=== PATIENT | male | born 1950 | race African-American/Black ===

== ENCOUNTER 2025-05-07 17:21 | Inpatient (IN) | payer MEDICAID ==
[~2025-05-07] VITALS: Ht 180.3 cm; Wt 83.9 kg
[2025-05-07 17:24] VITALS: O2SAT 100
[2025-05-07 17:59] LABS: HEMATOCRIT. 36.6 % (42.0-52.0); HEMOGLOBIN. 12.7 g/dL (14.0-18.0); MEAN PLATELET VOLUME 7.3 fl (7.4-10.4); PLATELET 120 x1000/uL (130-400); RED BLOOD CELL COUNT 4.05 mill/uL (4.7-6.1); RED CELL DISTRIBUTION WIDTH 13.7 % (11.6-14.6)
[2025-05-07] MEDS: MORPHINE SULFATE 4 MG/ML INJ (FOR IV/IM USE) IV ONE (18:08)
[2025-05-07] MEDS: ACETAMINOPHEN 325MG TABLET PO ONE (18:08)
[2025-05-07] MEDS: SODIUM CHLORIDE 0.9% (SEPSIS BOLUS) IV ONE (18:09)
[2025-05-07 18:18] LABS: LYMPHOCYTES % MANUAL 5.0 % (20.0-50.0); MONOCYTES % MANUAL 3.0 % (2.0-8.0); NEUTROPHILS % MANUAL 92.0 % (45.0-75.0); UREA NITROGEN BLOOD 86 mg/dL (9-23)
[2025-05-07 18:19] LABS: ASPARTATE AMINOTRANSFERASE 44 IU/L (<34); PLATELET ESTIMATE NORMAL
[2025-05-07 18:20] LABS: BILIRUBIN DIRECT 0.4 mg/dL (<=3.0); BILIRUBIN TOTAL 1.3 mg/dL (0.1-1.0); PROTEIN TOTAL 6.7 g/dL (6.0-8.3)
[2025-05-07 18:22] LABS: CREATININE 10.8 mg/dL (0.6-1.3)
[2025-05-07] MEDS: CEFTRIAXONE 1GM/50ML 50 ML IV ONE (18:26)
[2025-05-07 20:46] LABS: CLARITY URINE CLEAR (CLEAR); COLOR URINE YELLOW (YELLOW); GLUCOSE URINE NEGATIVE (NEGATIVE); KETONES URINE NEGATIVE (NEGATIVE); LEUKOCYTE ESTERASE URINE TRACE (NEGATIVE); NITRITE URINE NEGATIVE (NEGATIVE); OCCULT BLOOD URINE 3+ (NEGATIVE); PH URINE 5.5 (4.5-8.0); PROTEIN URINE 1+ (NEGATIVE); SPECIFIC GRAVITY URINE 1.010 (1.005-1.030); UROBILINOGEN URINE 0.2 E.U./dL (0.2-1.0)
[2025-05-07 21:08] LABS: INR 1.1
[2025-05-07 21:27] LABS: BACTERIA URINE TRACE; SQUAMOUS EPITHELIAL CELL URINE FEW /lpf (RARE/1+)
[2025-05-07 22:00] VITALS: BP 99/56; PULSE 133; RESP 18; TEMP 36.3; O2SAT 95
[2025-05-07 22:19] VITALS: BP 99/56; PULSE 133; RESP 18; TEMP 36.3068
[2025-05-07] MEDS: SODIUM CHLORIDE 0.9% 1,000 ML IV SCH (22:35)
[2025-05-08] VITALS: BP 104/63; PULSE 121; RESP 18; TEMP 36.5; O2SAT 99
[2025-05-08 01:20] LABS: HEMATOCRIT. 35.7 % (42.0-52.0); HEMOGLOBIN. 12.1 g/dL (14.0-18.0); MEAN PLATELET VOLUME 7.3 fl (7.4-10.4); PLATELET 123 x1000/uL (130-400); RED BLOOD CELL COUNT 3.90 mill/uL (4.7-6.1); RED CELL DISTRIBUTION WIDTH 13.7 % (11.6-14.6)
[2025-05-08] MEDS ORDERED: METO25TA6 PO (01:38)
[2025-05-08 01:48] LABS: UREA NITROGEN BLOOD 62.0 mg/dL (9-23)
[2025-05-08 01:53] LABS: CREATININE 7.0 mg/dL (0.6-1.3)
[2025-05-08 04:00] VITALS: BP_SYST 125; BP_DIAS 75; BP_DIAS 76; PULSE 110; RESP 18; TEMP 36.5; O2SAT 97
[2025-05-08 04:27] LABS: LYMPHOCYTES % MANUAL 3.0 % (20.0-50.0); MONOCYTES % MANUAL 5.0 % (2.0-8.0); NEUTROPHILS % MANUAL 92.0 % (45.0-75.0); PLATELET ESTIMATE NORMAL
[2025-05-08 08:00] VITALS: BP 132/79; PULSE 109; RESP 18; TEMP 36.4; O2SAT 99
[2025-05-08] MEDS ORDERED: ONDANSETRON HCL 4MG/2ML INJ IV PRN (08:00)
[2025-05-08] MEDS ORDERED: ACETAMINOPHEN 325MG TABLET PO PRN (08:00)
[2025-05-08 12:00] VITALS: BP 147/80; PULSE 109; RESP 20; TEMP 36.4; O2SAT 97
[2025-05-08] MEDS: TAMSULOSIN HCL 0.4MG SR CAPSULE PO SCH (13:44)
[2025-05-08 16:00] VITALS: BP 143/77; PULSE 119; RESP 18; TEMP 36.4; O2SAT 98
[2025-05-08] MEDS: CEFTRIAXONE 1GM/50ML 50 ML IV SCH (18:01)
[2025-05-08 20:00] VITALS: BP 125/77; PULSE 116; RESP 18; TEMP 36.9; O2SAT 97
[2025-05-09] VITALS: BP 149/87; PULSE 113; RESP 18; TEMP 38.3; O2SAT 97
[2025-05-09 04:00] VITALS: BP 152/86; PULSE 110; RESP 18; TEMP 36.5; O2SAT 100
[2025-05-09 08:00] VITALS: BP 146/86; PULSE 103; RESP 20; TEMP 36.3; O2SAT 97
[2025-05-09 11:44] LABS: HEMATOCRIT. 38.1 % (42.0-52.0); HEMOGLOBIN. 13.0 g/dL (14.0-18.0); MEAN PLATELET VOLUME 7.8 fl (7.4-10.4); PLATELET 127 x1000/uL (130-400); RED BLOOD CELL COUNT 4.17 mill/uL (4.7-6.1); RED CELL DISTRIBUTION WIDTH 14.1 % (11.6-14.6)
[2025-05-09 12:00] VITALS: BP 145/89; PULSE 94; RESP 18; TEMP 36.5; O2SAT 94
[2025-05-09 12:02] LABS: CREATININE 1.0 mg/dL (0.6-1.3); UREA NITROGEN BLOOD 15 mg/dL (9-23)
[2025-05-09 16:00] VITALS: BP 127/74; PULSE 113; RESP 19; TEMP 36.3; O2SAT 99
[2025-05-09 20:00] VITALS: BP 133/86; PULSE 100; RESP 17; TEMP 36.7; O2SAT 100
[2025-05-10] VITALS: BP 139/86; PULSE 119; RESP 18; TEMP 37; O2SAT 99
[2025-05-10 04:00] VITALS: BP 121/73; PULSE 107; RESP 17; TEMP 36.6; O2SAT 98
[2025-05-10 07:00] LABS: INFLUENZA TYPE A Presumptive Negative (Pres. Neg.)
[2025-05-10 07:01] LABS: INFLUENZA TYPE B Presumptive Negative (Pres. Neg.)
[2025-05-10 07:03] LABS: RESPIRATORY SYNCYTIAL VIRUS Not Detected (Not Detectd)
[2025-05-10 08:00] VITALS: BP 122/77; PULSE 99; RESP 18; TEMP 36.3; O2SAT 98
[2025-05-10 12:00] VITALS: BP 146/86; PULSE 104; RESP 18; TEMP 36.3; O2SAT 98
[2025-05-10] MEDS ORDERED: NALOXONE HCL 0.4MG/ML VIAL IV PRN (15:30)
[2025-05-10] MEDS ORDERED: HYDROCODONE/ACETAMINOPHEN 5/325MG TABLET PO PRN (15:30)
[2025-05-10 16:07] LABS: LYMPHOCYTES % MANUAL 7.0 % (20.0-50.0); MONOCYTES % MANUAL 5.0 % (2.0-8.0); NEUTROPHILS % MANUAL 88.0 % (45.0-75.0); PLATELET ESTIMATE DECREASED
== END 2025-05-10 21:29 | disposition left against medical advice (07) | DRG 871 ==
LOC: ER 17:21 → 5WST 18:46 → EDBEDREQ 18:52 → EDBEDREQTM 18:52 → ENRESERV 19:53
PROVIDERS: ADMIT Internal Medicine; ATTEND Internal Medicine
DX: A41.9 Sepsis, unspecified organism (principal); U07.1 COVID-19; D61.818 Other pancytopenia; N13.6 Pyonephrosis; N17.9 Acute kidney failure, unspecified; B96.89 Other specified bacterial agents as the cause of diseases classified elsewhere; D64.9 Anemia, unspecified; I12.9 Hypertensive chronic kidney disease with stage 1 through stage 4 chronic kidney disease, or unspecified chronic kidney disease; N18.9 Chronic kidney disease, unspecified; E87.1 Hypo-osmolality and hyponatremia; R35.0 Frequency of micturition; Z53.29 Procedure and treatment not carried out because of patient's decision for other reasons; N40.1 Benign prostatic hyperplasia with lower urinary tract symptoms; Z87.440 Personal history of urinary (tract) infections; Z78.9 Other specified health status
CPT/HCPCS: 36415; 71045; 76770; 80048; 80076; 81003; 83605; 83735; 84145; 85025; 87077; 87186; 87420; 87426; 87804; 93005; 96365; 96375; 99291; A4606; J0696; J2270; J7030